=== PATIENT | male | born 1965 | race Caucasian/White ===

== ENCOUNTER 2019-12-03 13:40 | Emergency (ER) | payer MEDICAID, SELFPAY ==
--- NOTE | ~2019-12-03 | CT_ITS ---
EXAMINATION: CT brain wo con DATE: 12/03/2019 14:59 INDICATION: 8 foot fall. Head injury. Back pain. TECHNIQUE: Computed tomography (CT) of the head was performed without intravenous contrast. The mA wa s adjusted according to patient size. Iterative reconstruction technique was employed. Exam dose: 68 1.00 mGy-cm total exam DLP. COMPARISON: 10/12/2012 CT brain FINDINGS: Bilateral vertebral artery and carotid siphon and supraclinoid internal carotid artery calc ifications. No intracranial mass lesion or hemorrhage or cerebrovascular accident is evident. No midline shift or mass effect. Normal ventricular size. No orbital mass lesion No subdural or epidural hematoma. No fracture or bone destruction of the cranial vault. The paranasal sinuses and mastoid air cells are normally developed and aerated. IMPRESSION: Cerebral atherosclerosis No acute intracranial finding Reviewed, dictated and finalized at [facility] Reviewed, dictated and finalized at [facility].
--- NOTE | ~2019-12-03 | CT_ITS ---
EXAMINATION: CT chest abdomen pelvis w con DATE: 12/03/2019 14:59 INDICATION: 8 foot fall. Back pain. TECHNIQUE: Computed tomography (CT) of the chest, abdomen, and pelvis was performed with 100 cc Omnip aque 350 intravenous contrast. Automated exposure control and iterative reconstruction technique were employed. Exam dose: 2003.09 mGy-cm total exam DLP. COMPARISON: None FINDINGS: CHEST CT: No pericardial or pleural effusion. Mild cardiomegaly. No hilar or mediastinal mass lesion or lymphad enopathy. No thoracic aortic aneurysm or dissection. Is mild dependent atelectasis of the left lung w ith the patient in left lateral decubitus position. No pulmonary mass lesion or consolidation or pneu mothorax. ABDOMEN/PELVIS CT: No hepatic, splenic, pancreatic, and adrenal or renal space-occupying mass lesion or laceration is ev ident. Evidence of cholecystectomy. No bile duct or pancreatic duct dilatation. No urinary tract calc ulus or hydroureteronephrosis. Normal caliber of the abdominal aorta. No intraperitoneal or retroperitoneal or pelvic mass lesion or adenopathy or ascites. There is moderate prostate enlargement as well as prostate calcifications and diffuse thickening of t he urinary bladder wall. There is prominent of fecal material within the colon no bowel obstruction or intraperitoneal free ai r. Degenerative changes of the thoracic and lumbar spine; no fracture is evident. No suspicious osteolyt ic or osteoblastic lesions are noted. IMPRESSION: Status post cholecystectomy Bullous emphysema Reviewed, dictated and finalized at [facility] Reviewed, dictated and finalized at [facility].
--- NOTE | ~2019-12-03 | XR_ITS ---
EXAMINATION: XR chest 1V portable INDICATION: Pain after fall TECHNIQUE: Portable AP chest at 1359 hours COMPARISON: 10/12/2012 FINDINGS: There are bibasilar airspace opacities. No pleural effusion or pneumothorax is identified. The cardiomediastinal silhouette is normal. IMPRESSION: 1. Bibasilar airspace opacities which could reflect atelectasis, pneumonia or possibly pulmonary cont usions given history of fall. Reviewed, dictated and finalized at [facility]. IMPRESSION: 1. Bibasilar airspace opacities which could reflect atelectasis, pneumonia or p ossibly pulmonary contusions given history of fall.
--- NOTE | ~2019-12-03 | CT_ITS ---
EXAMINATION: CT cervical spine wo con DATE: 12/03/2019 14:59 INDICATION: 8 foot fall. Neck and back pain. TECHNIQUE: Computed tomography (CT) of the cervical spine was performed without intravenous contrast. Automated exposure control and iterative reconstruction technique were employed. Exam dose: 416.18 mGy-cm total exam DLP. COMPARISON: None FINDINGS: There is moderately severe degenerative disease at C3-4 with 1.4 mm retrolisthesis, promine nt spurring at the uncovertebral joints at C3-4. There is moderate degenerative disease at C4-5, C5-6 and C6-7 with prominent uncovertebral joint spur ring in particular on the left at C4-5 and right greater than left at C6-7. No fracture or dislocation or locked facet. C1 and C2 are normally aligned and the odontoid process i s intact. Bullous changes noted in both apical areas. IMPRESSION: Degenerative changes of cervical spine; no fracture or dislocation evident Bullous emphysema Reviewed, dictated and finalized at [facility]. Reviewed, dictated and finalized at [facility].
[2019-12-03 13:46] VITALS: BP 155/98; PULSE 80; RESP 20; TEMP 36.8; O2SAT 98
--- NOTE | 2019-12-03 13:52 | ED.HEATRA ---
HPI - Head Injury General Chief complaint: Trauma <JUAN Encarnacion Last Filed: 12/03/19 16:10> Stated complaint: fall from 8 feet <JUAN Encarnacion Filed: 12/03/19 16:10> Time Seen by Provider: 12/03/19 13:45 <JUAN Encarnacion Last Filed: 12/03/19 16:10> Source: patient <JUAN Encarnacion Last Filed: 12/03/19 16:10> Mode of arrival: ambulatory <JUAN Encarnacion Last Filed: 12/03/19 16:10> Limitations: no limitations <JUAN Encarnacion Last Filed: 12/03/19 16:10> History of Present Illness HPI Narrative: Patient is a 54-year-old male who presents per private vehicle after sustaining a fall off scaffolding that was 8 to 10 feet high patient landed on his right side presents noting severe right posterior and midline thoracic pain worse with any activity or movement. Patient not had anything for his symptoms patient denies head injury syncope loss of consciousness. Patient has been able to ambulate since the injury which occurred just prior to arrival. Patient denies any anticoagulant use <JUAN Encarnacion Last Filed: 12/03/19 16:10> Related Data Allergies/Adverse reactions: Allergies Allergy/AdvReac Type Severity Reaction Status Date / Time No Known Allergies Allergy Verified 12/03/19 13:51 <JUAN Encarnacion Last Filed: 12/03/19 16:10> Review of Systems Review of Systems: All systems reviewed & are unremarkable except as noted in HPI and below <JUAN Encarnacion Last Filed: 12/03/19 16:10> Exam Narrative: Exam Narrative: GENERAL: Well-appearing, well-nourished, and in acute pain HEAD: Normocephalic, atraumatic. EYES: PERRLA and EOMI. ENT: Nares clear, no rhinorrhea or epistaxis. Mucous membranes moist. Oropharynx without tonsillar hypertrophy exudate or other lesions. NECK: Supple. No adenopathy or masses. CHEST: Clear to auscultation. No respiratory distress. No wheezes rales or rhonchi HEART: Regular rate and rhythm. No murmur heard. Normal peripheral pulses. ABDOMEN: Soft, nontender, nondistended EXTREMITIES: Normal range of motion. No edema. No midline cervical tenderness. Midline and right-sided paraspinal tenderness to palpation. No lumbar tenderness SKIN: Warm, dry, no rash. NEURO: No focal deficits. Alert and oriented x3. Cranial nerves II through XII grossly intact. Neurovascularly intact PSYCH: Normal mood and affect. <Benoit Worthington PA-C - Last Filed: 12/03/19 16:10> Course Course Emergency Course: Patient in the room aware of case findings treatment plan and diagnosis agreeing to follow-up as directed <Benoit Worthington PA-C - Last Filed: 12/03/19 16:10> Vital Signs Vital signs: Vital Signs Temperature 98.2 F 12/03/19 13:46 Pulse Rate 80 12/03/19 13:46 Respiratory Rate 20 12/03/19 13:46 Blood Pressure 155/98 H 12/03/19 13:46 Pulse Oximetry 98 12/03/19 13:46 Temperature 98.2 F 12/03/19 13:46 Pulse Rate 88 12/03/19 16:35 Respiratory Rate 18 12/03/19 16:35 Blood Pressure 158/96 H 12/03/19 16:35 Pulse Oximetry 97 12/03/19 16:35 <Benoit Worthington PA-C - Last Filed: 12/03/19 16:10> Vital Signs Temperature 98.2 F 12/03/19 13:46 Pulse Rate 80 12/03/19 13:46 Respiratory Rate 20 12/03/19 13:46 Blood Pressure 155/98 H 12/03/19 13:46 Pulse Oximetry 98 12/03/19 13:46 Temperature 98.2 F 12/03/19 13:46 Pulse Rate 88 12/03/19 16:35 Respiratory Rate 18 12/03/19 16:35 Blood Pressure 158/96 H 12/03/19 16:35 Pulse Oximetry 97 12/03/19 16:35 <Mela Escoto MD - Last Filed: 12/03/19 16:38> MDM - Head Injury MDM Narrative Medical decision making narrative: Patient with multiple rib fractures on the right patient is hemodynamically stable will be sent home with incentive spirometer and pain medication. Patient without other high risk changes in the blood work or imaging. Patient agr
[2019-12-03] MEDS: MORPHINE SULFATE 4 MG/ML INJ IV PUSH ×2 (14:00→16:06)
[2019-12-03] MEDS: SODIUM CHLORIDE 0.9% IV 1,000 ML 999 ML IV CONT (14:01)
[2019-12-03 14:03] LABS: Basophils Percent Auto 0.2 % (0.2-1.2); Eosinophils Absolute Auto 0.1 K/mm3 (0-0.3); Eosinophils Percent Auto 0.7 % (0-4.4); Hematocrit 49.4 % (42.0-52.0); Hemoglobin 16.4 g/dL (14.0-18.0); Immature Granulocyte Absolute 0.11 K/mm3 (0.00-0.031); Immature Granulocyte Percent A 0.8 % (0-0.5); Lymphocytes Absolute Auto 2.12 K/mm3 (0.9-3.2); Lymphocytes Percent Auto 15.9 % (18.3-44.2); Mean Corpuscular HGB Conc 33.2 g/dl (32-36); Mean Corpuscular Hemoglobin 29.4 pg (26-34); Mean Corpuscular Volume 88.7 fl (80-100); Mean Platelet Volume 10.3 fl (7.4-10.4); Monocytes Absolute Auto 0.9 K/mm3 (0.1-0.6); Monocytes Percent Auto 6.4 % (2.6-8.5); Neutrophils Absolute Auto 10.1 K/mm3 (1.3-6.7); Platelet Count Result 314 k/mm3 (150-375); Red Blood Count 5.57 M/mm3 (4.6-6.20); Red Cell Distribution Width 13.1 % (11.5-14.5); White Blood Count 13.3 K/mm3 (4.5-10.0)
[2019-12-03 14:13] LABS: Prothrombin Time 12.7 Seconds (11.1-14.7)
[2019-12-03 14:17] VITALS: BP 115/88; PULSE 80; RESP 20; O2SAT 97
[2019-12-03 14:19] LABS: Alanine Aminotransferase 37 U/L (4-50); Albumin Level 4.7 g/dL (3.5-5.1); Alkaline Phosphatase 72 U/L (38-126); Aspartate Amino Transferase 46 U/L (17-59); Bilirubin,Total 0.4 mg/dL (0.2-1.3); Blood Urea Nitrogen 14 mg/dL (9-20); Calcium 9.9 mg/dL (8.4-10.2); Carbon Dioxide 23 mmol/L (22-30); Chloride 107 mmol/L (98-107); Estimated Glomerular Filt Rate > 60; Glucose 112 mg/dL (75-110); Sodium 139 mmol/L (137-145)
[2019-12-03 15:03] VITALS: BP 169/96; PULSE 70; RESP 20; O2SAT 100
[2019-12-03 15:11] LABS: Add Urine Microscopic? YES; Appearance Urine Clear (Clear); Bilirubin Urine Negative (Negative); Blood Urine Negative (Negative); Color Urine Yellow (Yellow); Glucose Urine UA Negative (Negative); Ketones Urine Trace mg/dL (Negative); Leukocyte Esterase Ur Negative LEU/UL (Negative); Mucus Urine Rare /lpf; Nitrate Urine Negative (Negative); Protein Urine Negative (Negative); RBC Urine 0-2 /hpf (0-2); Urobilinogen Urine Negative mg/dL (<2.0); WBC Urine 0-3 /hpf
[2019-12-03 16:35] VITALS: BP 158/96; PULSE 88; RESP 18; O2SAT 97
== END 2019-12-03 16:48 | disposition home or self-care (01) ==
PROVIDERS: Emergency Medicine Emergency Medical Services; Emergency Provider Emergency Medicine
DX: S22.41XA Multiple fractures of ribs, right side, initial encounter for closed fracture (principal); I67.2 Cerebral atherosclerosis; R91.8 Other nonspecific abnormal finding of lung field; J43.9 Emphysema, unspecified; W12.XXXA Fall on and from scaffolding, initial encounter
CPT/HCPCS: 36415; 70450; 71045; 71260; 72125; 74177; 80053; 81001; 85025; 85610; 85730; 96361; 96374; 96376; 99284; J2270; J7030; L0140; Q9967